=== PATIENT | male | born 1955 | race Caucasian/White ===

== ENCOUNTER 2018-06-27 09:17 | Outpatient (REF) | payer BC, SELFPAY ==
[2018-06-27 20:22] LABS: BUN 19 mg/dL (7-18); CREATININE 0.95 mg/dL (0.70-1.30); Calcium 9.1 mg/dL (8.5-10.1); Chloride 104 mmol/L (98-107); Cholesterol 141 mg/dL (50-200); Glucose 97 mg/dL (70-100); HDL Cholesterol 56 mg/dL (40-60); LDL CHOLESTEROL 76 mg/dL (<100); Potassium 4.3 mmol/L (3.5-5.1); Sodium 141 mmol/L (136-145); Triglyceride 72 mg/dL (30-150)
[2018-06-27 20:25] LABS: Hemoglobin A1C 5.2 % (4.5-6.2)
[2018-06-29 09:35] LABS: PSA, Screening 0.6 ng/ml (0-4.5)
== END 2018-06-27 09:37 ==
LOC: NCHCN 09:17
PROVIDERS: PCP Nurse Practitioner Family; Visit Provider Nurse Practitioner Family
DX: Z00.00 Encounter for general adult medical examination without abnormal findings (principal); I10 Essential (primary) hypertension; Z12.5 Encounter for screening for malignant neoplasm of prostate; Z13.1 Encounter for screening for diabetes mellitus
CPT/HCPCS: 80048; 80061; 83721; 84153; 83036

== ENCOUNTER 2020-01-15 21:25 | Outpatient (REF) | payer OTHER, SELFPAY ==
[2020-01-15 19:39] LABS: Anion Gap 6.1 mmol/L (3-11); BUN 21 mg/dL (7-18); CO2 25.9 mmol/L (21.0-32.0); CREATININE 1.02 mg/dL (0.70-1.30); Calcium 8.6 mg/dL (8.5-10.1); Chloride 106 mmol/L (98-107); Glucose 102 mg/dL (74-106); Potassium 3.8 mmol/L (3.5-5.1); Sodium 138 mmol/L (136-145)
== END 2020-01-15 21:45 ==
LOC: NCHCN 21:25
PROVIDERS: PCP Nurse Practitioner Family; Visit Provider Nurse Practitioner Family
DX: I10 Essential (primary) hypertension (principal)
CPT/HCPCS: 80048

== ENCOUNTER 2021-01-15 16:35 | Outpatient (REF) | payer OTHER, SELFPAY ==
[2021-01-15 20:59] LABS: Anion Gap 7.7 mmol/L (3-11); BUN 22 mg/dL (7-18); CO2 28.3 mmol/L (21.0-32.0); Calcium 8.6 mg/dL (8.5-10.1); Chloride 104 mmol/L (98-107); Glucose 115 mg/dL (74-106); Potassium 3.9 mmol/L (3.5-5.1); Sodium 140 mmol/L (136-145)
== END 2021-01-15 16:36 | disposition home or self-care (01) ==
LOC: NCHCN 16:35
PROVIDERS: PCP Nurse Practitioner Family; Visit Provider Nurse Practitioner Family
DX: I10 Essential (primary) hypertension (principal)
CPT/HCPCS: 80048

== ENCOUNTER 2021-07-15 16:40 | Outpatient (REF) | payer OTHER, SELFPAY ==
[2021-07-15 19:16] LABS: Abs Immature Grans 0.02 10^3/uL (0.0-0.06); Absolute Basophil Count 0.04 10^3/uL (0.0-0.2); Absolute Eosinophil Count 0.14 10^3/uL (0.0-0.7); Absolute Lymphocyte Count 1.43 10^3/uL (1.2-3.4); Absolute Neutrophil Count 1.67 10^3/uL (1.2-6.7); Eosinophils % 3.6; HCT 40.1 % (40.0-50.0); HGB 14.1 g/dL (13.5-17.5); Immature Grans % 0.5; Lymphocytes % 36.7; MCH 33.3 pg (27.0-33.0); MCHC 35.2 % (32.0-36.0); MCV 95 fL (80-95); Monocytes % 15.4; Neutrophils % 42.8; Platelet Count 165 10^3/uL (130-400); RBC 4.23 10^6/uL (4.36-5.78); RDW 12.9 % (11.8-14.1); RDW-SD 44.3 fL
[2021-07-15 19:41] LABS: Anion Gap 8.2 mmol/L (3-11); BUN 14 mg/dL (7-18); CO2 25.8 mmol/L (21.0-32.0); CREATININE 1.1 mg/dL (0.70-1.30); Calcium 8.7 mg/dL (8.5-10.1); Chloride 105 mmol/L (98-107); Glucose 107 mg/dL (74-106); Potassium 3.9 mmol/L (3.5-5.1); Sodium 139 mmol/L (136-145); TSH 1.04 uIU/mL (0.36-3.74)
== END 2021-07-15 16:41 | disposition home or self-care (01) ==
LOC: NCHCN 16:40
PROVIDERS: PCP Nurse Practitioner Family; Visit Provider Nurse Practitioner Family
DX: R53.83 Other fatigue (principal); I10 Essential (primary) hypertension
CPT/HCPCS: 80048; 84443; 85025

== ENCOUNTER 2021-08-21 17:34 | Outpatient (REF) | payer OTHER, SELFPAY ==
[2021-08-21 18:42] LABS: HCT 39.3 % (40.0-50.0); HGB 13.6 g/dL (13.5-17.5); MCH 32.9 pg (27.0-33.0); MCHC 34.6 % (32.0-36.0); MCV 95 fL (80-95); MPV 9.8 fL (8.0-11.0); Platelet Count 166 10^3/uL (130-400); RBC 4.13 10^6/uL (4.36-5.78); RDW 12.2 % (11.8-14.1); RDW-SD 42.6 fL; WBC 5.42 10^3/uL (4.4-10.8)
== END 2021-08-21 17:35 | disposition home or self-care (01) ==
LOC: NCHCN 17:34
PROVIDERS: PCP Nurse Practitioner Family; Visit Provider Nurse Practitioner Family
DX: D72.818 Other decreased white blood cell count (principal)
CPT/HCPCS: 85027

== ENCOUNTER 2021-11-18 10:31 | Outpatient (REF) | payer OTHER, SELFPAY ==
[2021-11-18 19:07] LABS: Bilirubin Negative (Negative); Blood Negative (Negative); Clarity Clear (Clear); Glucose Negative (Negative); Ketones Negative (Negative); Leukocyte Esterase Trace (Negative); Nitrite Negative (Negative); Urobilinogen 0.2 EU/dL (Up TO 0.2)
[2021-11-18 19:40] LABS: Bacteria Rare HPF (Negative); C & S Indicated? Yes; Crystals Negative HPF (Negative); Epithelial Cells Rare HPF (Negative); Mucus Negative (Negative); Other Cells Few Transitional (Negative); RBC 0-2 HPF (0-2)
== END 2021-11-18 10:32 | disposition home or self-care (01) ==
LOC: NCHCN 10:31
PROVIDERS: PCP Nurse Practitioner Family; Visit Provider Nurse Practitioner Family
DX: R30.0 Dysuria (principal)
CPT/HCPCS: 87077; 81003; 81015; 87086; 87186

== ENCOUNTER 2022-10-12 09:05 | Outpatient (REF) | payer OTHER, SELFPAY ==
[2022-10-12 20:33] LABS: Anion Gap 7.9 mmol/L (3-11); BUN 16 mg/dL (7-18); CO2 26.1 mmol/L (21.0-32.0); CREATININE 1.1 mg/dL (0.70-1.30); Calcium 9.3 mg/dL (8.5-10.1); Chloride 103 mmol/L (98-107); Glucose 107 mg/dL (74-106); Potassium 4.1 mmol/L (3.5-5.1); Sodium 137 mmol/L (136-145)
== END 2022-10-12 09:06 | disposition home or self-care (01) ==
LOC: NCHCN 09:05
PROVIDERS: PCP Nurse Practitioner Family; Visit Provider Nurse Practitioner Family
DX: I10 Essential (primary) hypertension (principal)
CPT/HCPCS: 80048

== ENCOUNTER 2024-02-02 09:12 | Outpatient (REF) | payer OTHER, SELFPAY ==
[2024-02-02 20:27] LABS: ALT 39 U/L (16-63); AST 33 U/L (15-37); Albumin 4.2 g/dL (3.4-5.0); Alkaline Phosphatase 94 U/L (46-116); Anion Gap 6.8 mmol/L (3-11); BUN 13 mg/dL (7-18); CO2 27.2 mmol/L (21.0-32.0); CREATININE 1.1 mg/dL (0.70-1.30); Calcium 9.4 mg/dL (8.5-10.1); Calculated LDL 75 mg/dL (<100); Chloride 106 mmol/L (98-107); Cholesterol 165 mg/dL (<200); Estimated GFR 73.58 (mL/min/1.73m2); Glucose 104 mg/dL (74-106); HDL Cholesterol 68 mg/dL (40-60); Potassium 4.2 mmol/L (3.5-5.1); Sodium 140 mmol/L (136-145); Total Protein 7.5 g/dL (6.4-8.2); Triglyceride 112 mg/dL (<150)
== END 2024-02-02 09:13 | disposition home or self-care (01) ==
LOC: NCHCN 09:12
PROVIDERS: PCP Nurse Practitioner Family; Visit Provider Nurse Practitioner Family
DX: I10 Essential (primary) hypertension (principal)
CPT/HCPCS: 80053; 80061

== ENCOUNTER 2025-01-29 12:38 | Outpatient (REF) | payer MEDICARE, OTHER, MEDICAID, SELFPAY ==
[2025-01-29 20:05] LABS: Abs Immature Grans 0.01 10^3/uL (0.0-0.06); HCT 42.5 % (40.0-50.0); HGB 15.2 g/dL (13.5-17.5); Immature Grans % 0.2 %; MCH 33.9 pg (27.0-33.0); MCHC 35.8 % (32.0-36.0); MCV 95 fL (80-95); MPV 10.4 fL (8.0-11.0); Platelet Count 163 10^3/uL (130-400); RBC 4.48 10^6/uL (4.36-5.78); RDW 12.9 % (11.8-14.1); RDW-SD 44.6 fL; WBC 4.48 10^3/uL (4.4-10.8)
[2025-01-29 20:24] LABS: TSH (W/Ref FT4) 1.77 uIU/mL (0.55-4.78)
[2025-01-29 20:25] LABS: ALT 38 U/L (10-49); AST 39 U/L (<34); Albumin 4.7 g/dL (3.2-5.0); Alkaline Phosphatase 81 U/L (46-116); Anion Gap 8.5 mmol/L (3-11); BUN 10 mg/dL (9-23); Bilirubin, Total 0.8 mg/dL (0.2-1.2); CO2 25.5 mmol/L (20.0-31.0); Calcium 9.8 mg/dL (8.3-10.6); Chloride 106 mmol/L (98-107); Cholesterol 157 mg/dL (<200); Glucose 91 mg/dL (74-106); HDL Cholesterol 67 mg/dL (>40); Potassium 4.5 mmol/L (3.5-5.1); Sodium 140 mmol/L (136-145); Total Protein 7.6 g/dL (5.7-8.2)
[2025-01-30 18:25] LABS: PSA, Screening 0.7 ng/mL (<=4.5)
== END 2025-01-29 12:39 | disposition home or self-care (01) ==
LOC: NCHCN 12:38
PROVIDERS: PCP Nurse Practitioner Family; Visit Provider Nurse Practitioner Family
DX: Z12.5 Encounter for screening for malignant neoplasm of prostate (principal); I10 Essential (primary) hypertension; R53.82 Chronic fatigue, unspecified; R06.02 Shortness of breath
CPT/HCPCS: 80053; 80061; 84153; 84443; 85025